=== PATIENT | male | born 1975 | race American Indian/Alaskan Native ===

== ENCOUNTER 2016-06-02 03:55 | Emergency (ER) | payer SELFPAY ==
[2016-06-02] MEDS ORDERED: NACL 0.9% 1000 ML 1,000 ML IV ONE (04:20)
[2016-06-02 04:57] LABS: Basophils % (Auto) 0.1 % (0.0-1.8); Eosinophils % (Auto) 0.2 % (0.0-4.3); Hematocrit 43.9 % (35.5-45.6); Hemoglobin 14.8 gm/dl (11.8-15.2); Mean Corpuscular HGB Conc 34 % (32-34); Mean Corpuscular Hemoglobin 32 pg (28-32); Mean Corpuscular Volume 96 fl (84-94); Platelet Count 225 K/mm3 (140-440); Red Blood Count 4.58 M/mm3 (3.65-5.03); Red Cell Distribution Width 11.8 % (13.2-15.2); White Blood Count 14.8 K/mm3 (4.5-11.0)
[2016-06-02 05:07] LABS: Alanine Aminotransferase 19 units/L (7-56); Albumin/Globulin Ratio 1.4 %; Alkaline Phosphatase 82 units/L (35-129); Anion Gap 16 mmol/L; Bilirubin,Total 0.2 mg/dL (0.1-1.2); Blood Urea Nitrogen 13 mg/dL (9-20); Calcium 8.4 mg/dL (8.4-10.2); Carbon Dioxide 28 mmol/L (22-30); Creatine Kinase 451 units/L (55-170); Glucose 149 mg/dL (75-100); Potassium 4.5 mmol/L (3.6-5.0); Sodium 140 mmol/L (137-145); Total Protein 6.9 g/dL (6.3-8.2)
[2016-06-02 05:14] LABS: Bilirubin,Direct < 0.2 mg/dL (0-0.2)
--- NOTE | 2016-06-02 06:34 | Emergency Department Report ---
ED General Adult HPI - General Chief complaint: Overdose Stated complaint: POSS OD Time Seen by Provider: 06/02/16 06:28 Source: patient, family, EMS, RN notes reviewed Mode of arrival: Stretcher Limitations: No Limitations - History of Present Illness Initial comments: This is a 40-year-old male. He is previously unknown to me. He is brought to the ER by EMS for unresponsiveness after recreational heroin ingestion. EMS apparently first evaluated the patient at 320 5 in the morning, gave her 0.5 mg of Narcan IV push, with almost immediate amish of mental status. The patient denies headache, neck pain, chest pain, abdominal pain or shortness of breath. He is not homicidal or suicidal. He is apologetic about his recreational consumption of heroin. He denies coingestions, and he declines evaluation for detox at this time. -: Gradual Severity scale (0 -10): 0 Consistency: now resolved Improves with: medication Associated Symptoms: denies other symptoms - Related Data Previous Rx's Medication Instructions Recorded Last Taken Type Naloxone HCl [Narcan] 4 mg NS Q1HR PRN #2 spray 06/02/16 Unknown Rx ED Review of Systems ROS: Stated complaint: POSS OD Other details as noted in HPI Constitutional: denies: fever Eyes: denies: vision change ENT: denies: epistaxis Respiratory: denies: cough Cardiovascular: denies: chest pain Gastrointestinal: denies: abdominal pain Genitourinary: as per HPI Musculoskeletal: as per HPI Skin: as per HPI Neurological: as per HPI. denies: confusion Psychiatric: denies: homicidal thoughts, suicidal thoughts ED Past Medical Hx - Past Medical History Previous Medical History?: Yes Hx HIV: Yes - Surgical History Past Surgical History?: No - Social History Smoking Status: Current Every Day Smoker Substance Use Type: Heroin - Medications Home Medications: Home Medications Medication Instructions Recorded Confirmed Last Taken Type Naloxone HCl [Narcan] 4 mg NS Q1HR PRN #2 spray 06/02/16 Unknown Rx ED Physical Exam - General Limitations: No Limitations General appearance: alert, in no apparent distress - Head Head exam: Present: atraumatic, normocephalic - Eye Eye exam: Present: normal appearance, PERRL, EOMI. Absent: nystagmus - ENT ENT exam: Present: normal exam, normal orophraynx, mucous membranes moist, normal external ear exam - Neck Neck exam: Present: normal inspection, full ROM. Absent: tenderness, meningismus - Respiratory Respiratory exam: Present: normal lung sounds bilaterally. Absent: respiratory distress, wheezes, rales, rhonchi, stridor, decreased breath sounds - Cardiovascular Cardiovascular Exam: Present: regular rate, normal rhythm, normal heart sounds. Absent: bradycardia, tachycardia, irregular rhythm, systolic murmur, diastolic murmur, rubs, gallop - GI/Abdominal GI/Abdominal exam: Present: soft, normal bowel sounds. Absent: distended, tenderness, guarding, rebound, rigid, pulsatile mass - Rectal Rectal exam: Present: deferred - Extremities Exam Extremities exam: Present: normal inspection, full ROM, normal capillary refill. Absent: tenderness, pedal edema, joint swelling, calf tenderness - Back Exam Back exam: Present: normal inspection, full ROM. Absent: tenderness, CVA tenderness (R), CVA tenderness (L), muscle spasm, paraspinal tenderness, vertebral tenderness - Neurological Exam Neurological exam: Present: alert, oriented X3, normal gait, other (Extraocular movements intact. Tongue midline. No facial droop. Facial sensation intact to light touch in the V1, V2, V3 distribution bilaterally. 5 and 5 strength in 4 extremities.. Sensation is intact to light touch in 4 extremities.). Absent : motor sensory deficit - Psychiatric Psychiatric exam: Present: normal affect, normal mood. Absent: homicidal ideation, suicidal ideation - Skin Skin exam: Present: warm, dry, intact, normal color. Absent: rash ED Course Vital Signs 06/02/16 06/02/16 06/02/16 04:04 07:30 08:00 Temperature 97.7 F 98.5 F Pulse Rate 93 H 88 Respiratory 16 18 18 Rate Blood Pressure 129/71 Blood Pressure 129/71 124/76 [Left] O2 Sat by Pulse 95 98 97 Oximetry - Reevaluation(s) Reevaluation #1: 06/02/16 07:48 Differential diagnosis: Narcotic overdose, opioid abuse Assessment and plan: 40-year-old male status post accidental narcotic overdose. He is not homicidal or suicidal, he has a GCS of 15, NIH score of 0, walks with a steady gait, clinically sober at this time, does not require 1013. The patient is instructed to discontinue recreational consumption of illegal drugs and narcotics. He will be discharged with a prescription for Narcan, and instructions on how to use the Narcan were reviewed with the patient and his family/daughter, who verbalized understanding. Patient has been observed for a period of 4 hours, including his EMS care, he has had no airway decompensations, and his mental status is appropriate at this time. He will be discharged at this time. Return precautions were extensively reviewed ED Medical Decision Making - Lab Data Result diagrams: 06/02/16 04:28 06/02/16 04:28 Vital Signs 06/02/16 04:04 Temperature 97.7 F Pulse Rate 93 H Respiratory 16 Rate Blood Pressure 129/71 Blood Pressure 129/71 [Left] O2 Sat by Pulse 95 Oximetry Lab Results 06/02/16 06/02/16 06/02/16 Range/Units 04:28 04:28 04:28 WBC 14.8 H (4.5-11.0) K/mm3 RBC 4.58 (3.65-5.03) M/mm3 Hgb 14.8 (11.8-15.2) gm/dl Hct 43.9 (35.5-45.6) % MCV 96 H (84-94) fl MCH 32 (28-32) pg MCHC 34 (32-34) % RDW 11.8 L (13.2-15.2) % Plt Count 225 (140-440) K/mm3 Lymph % (Auto) 5.5 L (13.4-35.0) % [place] % (Auto) 4.5 (0.0-7.3) % Eos % (Auto) 0.2 (0.0-4.3) % Baso % (Auto) 0.1 (0.0-1.8) % Lymph # 0.8 L (1.2-5.4) K/mm3 [place] # 0.7 (0.0-0.8) K/mm3 Eos # 0.0 (0.0-0.4) K/mm3 Baso # 0.0 (0.0-0.1) K/mm3 Seg Neutrophils % 89.7 H (40.0-70.0) % Seg Neutrophils # 13.3 H (1.8-7.7) K/mm3 Sodium 140 (137-145) mmol/L Potassium 4.5 (3.6-5.0) mmol/L Chloride 101.0 (98-107) mmol/L Carbon Dioxide 28 (22-30) mmol/L Anion Gap 16 mmol/L BUN 13 (9-20) mg/dL Creatinine 1.0 (0.8-1.5) mg/dL Estimated GFR > 60 ml/min BUN/Creatinine Ratio 13.00 % Glucose 149 H (75-100) mg/dL Calcium 8.4 (8.4-10.2) mg/dL Total Bilirubin 0.2 (0.1-1.2) mg/dL Direct Bilirubin < 0.2 (0-0.2) mg/dL Indirect Bilirubin 0.0 mg/dL AST 23 (5-40) units/L ALT 19 (7-56) units/L Alkaline Phosphatase 82 (35-129) units/L Total Creatine Kinase 451 H (55-170) units/L Total Protein 6.9 (6.3-8.2) g/dL Albumin 4.0 (3.9-5) g/dL Albumin/Globulin Ratio 1.4 % Salicylates < 0.3 L (2.8-20.0) mg/dL Acetaminophen (10.0-30.0) ug/mL 06/02/16 Range/Units 04:28 WBC (4.5-11.0) K/mm3 RBC (3.65-5.03) M/mm3 Hgb (11.8-15.2) gm/dl Hct (35.5-45.6) % MCV (84-94) fl MCH (28-32) pg MCHC (32-34) % RDW (13.2-15.2) % Plt Count (140-440) K/mm3 Lymph % (Auto) (13.4-35.0) % [place] % (Auto) (0.0-7.3) % Eos % (Auto) (0.0-4.3) % Baso % (Auto) (0.0-1.8) % Lymph # (1.2-5.4) K/mm3 [place] # (0.0-0.8) K/mm3 Eos # (0.0-0.4) K/mm3 Baso # (0.0-0.1) K/mm3 Seg Neutrophils % (40.0-70.0) % Seg Neutrophils # (1.8-7.7) K/mm3 Sodium (137-145) mmol/L Potassium (3.6-5.0) mmol/L Chloride (98-107) mmol/L Carbon Dioxide (22-30) mmol/L Anion Gap mmol/L BUN (9-20) mg/dL Creatinine (0.8-1.5) mg/dL Estimated GFR ml/min BUN/Creatinine Ratio % Glucose (75-100) mg/dL Calcium (8.4-10.2) mg/dL Total Bilirubin (0.1-1.2) mg/dL Direct Bilirubin (0-0.2) mg/dL Indirect Bilirubin mg/dL AST (5-40) units/L ALT (7-56) units/L Alkaline Phosphatase (35-129) units/L Total Creatine Kinase (55-170) units/L Total Protein (6.3-8.2) g/dL Albumin (3.9-5) g/dL Albumin/Globulin Ratio % Salicylates (2.8-20.0) mg/dL Acetaminophen < 15.0 (10.0-30.0) ug/mL - EKG Data -: EKG Interpreted by Me EKG shows normal: sinus rhythm, axis, intervals, QRS complexes, ST-T waves Rate: normal - EKG Data When compared to previous EKG there are: previous EKG unavailable Critical care attestation.: If time is entered above; I have spent that time in minutes in the direct care of this critically ill patient, excluding procedure time. ED Disposition Clinical Impression: Opioid abuse Disposition: DISCHARGED TO HOME OR SELFCARE Is pt being admited?: No Does the pt Need Aspirin: No Condition: Stable Instructions: Narcotic Abuse (ED) Additional Instructions: Discontinued consumption of narcotics/heroin/illegal drugs. These are not good for your health. Consumption of narcotics/heroin/illegal drugs can cause , disability, paralysis, permanent loss of quality of life. Follow up with the primary care doctor or forestry extension specialist within the next week to [address] Rafi Shields is a local primary care doctor. Return to the ER right away with new, worsening or different symptoms, fevers or chills, chest pain or shortness of breath, nausea or vomiting, inability to tolerate liquid feeds. Prescriptions: Naloxone HCl [Narcan] 4 mg NS Q1HR PRN #2 spray PRN Reason: Agitation Referrals: PRIMARY CARE, [Primary Care Provider] - 3-5 Days RAFI SHIELDS MD [Staff Physician] - 3-5 Days [facility] [Outside] - 3-5 Days
[2016-06-02 08:34] VITALS: BP 124/76
[2016-06-03] MEDS ORDERED: DULCOLAX PR PRN (01:42)
[2016-06-03] MEDS ORDERED: TYLENOL PO PRN (01:42)
[2016-06-03] MEDS ORDERED: MILK OF MAGNESIA PO PRN (01:42)
[2016-06-03] MEDS ORDERED: D50W (25GM) IV PRN (01:42)
[2016-06-03] MEDS ORDERED: ZOFRAN IV PRN (01:42)
[2016-06-03] MEDS ORDERED: BENADRYL IV PRN (01:47)
[2016-06-03] MEDS ORDERED: LOVENOX SUB-Q SCH (10:00)
== END 2016-06-02 08:10 | disposition home or self-care (01) ==
LOC: ED 03:55
DX: F11.10 Opioid abuse, uncomplicated (principal); F17.200 Nicotine dependence, unspecified, uncomplicated
CPT/HCPCS: 36415; 80048; 80074; 82550; 85025; 93005; 93010; 96360; 96361; 99284; G0480; J7030; 80320